=== PATIENT | female | born 1995 | race African-American/Black ===

== ENCOUNTER 2021-04-21 06:06 | Inpatient (IN) ==
[2021-04-21] MEDS ORDERED: CITRIC ACID/SODIUM CITRATE 30 ML UDCUP PO ONE (07:31)
[2021-04-21] MEDS ORDERED: ceFAZolin 2,000 MG/50 ML DUPLEX IV ONE (07:31)
[2021-04-21] MEDS ORDERED: FAMOTIDINE 20 MG/2 ML VIAL IV ONE (07:31)
[2021-04-21] MEDS ORDERED: LACTATED RINGERS 1,000 ML IV SCH (08:00)
[2021-04-21 08:13] LABS: Basophils % 0.3 % (0.0-0.8); Eosinophils % 0.5 % (0.00-10.9); Hematocrit 26.4 VOL% (35.7-47.0); Hemoglobin 7.8 GM/DL (12.0-16.0); Immature Granulocytes % 1.5 %; Immature Granulocytes Absolute 0.09 #; Lymphocytes # 1.6 10*3/uL (1.4-4.0); Lymphocytes % 25.8 % (21.3-54.2); Mean Corpuscular HGB Conc 29.5 GM/DL (32-36); Mean Corpuscular Volume 73.3 FL (87-102); Mean Platelet Volume 9.8 FL (9.6-12.0); Monocytes % 6.2 % (1.7-12.7); NRBC # 0.14 10*3/uL; Neutrophils % 65.7 % (38.7-73.9); Platelet Count 257 T/CUMM (130-400); Red Cell Distribution Width 17.4 % (9.3-17.3); White Blood Count 6.1 T/CUMM (4-12)
[2021-04-21] MEDS ORDERED: TRANEXAMIC ACID 1,000 MG/10 ML VIAL ONE (08:13)
[2021-04-21] MEDS ORDERED: miSOPROStoL 200 MCG TABLET ONE (08:13)
[2021-04-21] MEDS ORDERED: CARBOPROST TROMETHAMINE 250 MCG/ML AMP IM ONE (08:14)
[2021-04-21] MEDS ORDERED: OXYTOCIN/LR 20 UNIT/1,000 ML BAG IV ONE ×2 (08:14→10:17)
[2021-04-21] MEDS ORDERED: METHYLERGONOVINE 0.2 MG/1 ML AMP ONE (08:14)
[2021-04-21] MEDS ORDERED: SODIUM CHLORIDE 0.9% 0 ML IV ONE (08:14)
[2021-04-21 08:20] LABS: Albumin 1.9 G/DL (3.4-5.0); Bilirubin,Total 0.4 MG/DL (0.20-1.00); Calcium 8.4 MG/DL (8.5-10.1); Osmolality,Calculated 278.1 MOS/KG (273-304); Total Protein 6.1 G/DL (6.4-8.2)
[2021-04-21] MEDS ORDERED: PHENYLEPHRINE 1 MG/10 ML SYRINGE IV ONE (08:56)
[2021-04-21] MEDS ORDERED: BUPIVACAINE SPINAL 0.75% 2 ML AMP SPINAL ONE (08:56)
[2021-04-21] MEDS ORDERED: ONDANSETRON 4 MG/2 ML VIAL ONE (08:56)
[2021-04-21] MEDS ORDERED: SODIUM CHLORIDE 0.9% 1,000 ML IV PRN (09:30)
[2021-04-21] MEDS ORDERED: propofoL 200 MG/20 ML VIAL IV ONE (09:55)
[2021-04-21] MEDS ORDERED: KETOROLAC 30 MG/1 ML VIAL ONE ×2 (10:01)
[2021-04-21 10:02] LABS: Bilirubin,Urine Negative (Negative); Blood, Urine Negative (Negative); Glucose,Urine (UA) Negative (Negative); Ketones,Urine Negative (Negative); Nitrite,Urine Negative (Negative); Protein,Urine Negative; Squamous Epithelial Cell,Urine Occasional /HPF (0-10); Urine Appearance CLEAR (Clear); Urine Color Straw (Yellow); Urine Specific Gravity 1.002 (1.001-1.035); Urine Urobilinogen < 2.0 EU/DL (<2.0)
[2021-04-21 10:09] LABS: Cord Arterial Blood HCO3 27.1 MMOL/L
[2021-04-21 10:09] LABS: Cord Arterial Blood HCO3 24.4 MMOL/L
[2021-04-21 10:12] LABS: Cord Venous Blood HCO3 24.9 MMOL/L; Cord Venous Blood PCO2 47.4 MMHG; Cord Venous Blood PO2 20.7
[2021-04-21 10:14] LABS: Cord Venous Blood HCO3 24.2 MMOL/L; Cord Venous Blood PCO2 36.8 MMHG; Cord Venous Blood PO2 31.1 MMHG
[2021-04-21] MEDS ORDERED: BISACODYL 10 MG SUPP RECTAL PRN (10:17)
[2021-04-21] MEDS ORDERED: ONDANSETRON 4 MG/2 ML VIAL IV PRN (10:17)
[2021-04-21] MEDS ORDERED: DIPH/TET/ACEL PERT BOOSTER VACCINE 0.5 ML VIAL IM ONE (10:17)
[2021-04-21] MEDS ORDERED: IBUPROFEN 800 MG TABLET PO PRN (10:17)
[2021-04-21] MEDS ORDERED: MEASLES/MUMPS/RUBELLA VACCINE 0.5 ML VIAL SUBCUT ONE (10:17)
[2021-04-21] MEDS ORDERED: oxyCODONE/ACETAMINOPHEN 5-325 MG TABLET PO PRN (10:17)
[2021-04-21] MEDS ORDERED: RHO(D) IMMUNE GLOBULIN 300 MCG SYRINGE IM ONE (10:17)
[2021-04-21] MEDS ORDERED: WITCH HAZEL PADS 100/JAR TOP PRN (10:17)
[2021-04-21] MEDS ORDERED: HYDROCORTISONE 2.5% RECTAL CREAM 30 GM TUBE TOP PRN (10:17)
[2021-04-21] MEDS ORDERED: ACETAMINOPHEN 325 MG TABLET PO PRN (10:17)
[2021-04-21] MEDS ORDERED: LANOLIN 50% CREAM 0.3 OZ TUBE TOP PRN (10:17)
[2021-04-21] MEDS ORDERED: BENZOCAINE 20%/MENTHOL 0.5% SPRAY 56 GM CAN TOP PRN (10:17)
[2021-04-21] MEDS ORDERED: OXYTOCIN/LR 20 UNIT/1,000 ML BAG IV SCH (10:30)
[2021-04-21] MEDS ORDERED: HYDROmorphone 2 MG/1 ML VIAL IV PRN (11:32)
[2021-04-21] MEDS ORDERED: diphenhydrAMINE 50 MG/1 ML VIAL IV PRN (11:32)
[2021-04-21] MEDS ORDERED: amLODIPine 10 MG TABLET PO SCH (12:27)
[2021-04-21] MEDS: ACETAMINOPHEN 500 MG TABLET PO SCH ×2 (14:14→21:47)
[2021-04-21] MEDS: KETOROLAC 30 MG/1 ML VIAL IV SCH ×2 (16:16→21:54)
[2021-04-21] MEDS ORDERED: LABETALOL 100 MG/20 ML VIAL IV ONE (17:00)
[2021-04-21 17:56] LABS: Hematocrit 29.9 VOL% (35.7-47.0); Hemoglobin 8.9 GM/DL (12.0-16.0)
[2021-04-21] MEDS: DOCUSATE SODIUM 100 MG CAPSULE PO SCH (21:47)
[2021-04-22] MEDS: KETOROLAC 30 MG/1 ML VIAL IV SCH (04:00)
[2021-04-22] MEDS: ACETAMINOPHEN 500 MG TABLET PO SCH (04:00)
[2021-04-22 05:38] LABS: Basophils % 0.4 % (0.0-0.8); Eosinophils % 0.4 % (0.00-10.9); Hematocrit 27.7 VOL% (35.7-47.0); Hemoglobin 8.6 GM/DL (12.0-16.0); Immature Granulocytes % 0.9 %; Immature Granulocytes Absolute 0.09 #; Lymphocytes # 1.7 10*3/uL (1.4-4.0); Lymphocytes % 16.5 % (21.3-54.2); Mean Corpuscular Volume 75.7 FL (87-102); Mean Platelet Volume 9.8 FL (9.6-12.0); Monocytes % 6.1 % (1.7-12.7); NRBC # 0.09 10*3/uL; Neutrophils % 75.7 % (38.7-73.9); Platelet Count 238 T/CUMM (130-400); Red Blood Count 3.66 MC/CUMM (3.8-5.5); Red Cell Distribution Width 17.9 % (9.3-17.3); White Blood Count 10.1 T/CUMM (4-12)
[2021-04-22] MEDS ORDERED: POTASSIUM CHLORIDE INJ 20 MEQ in LACTATED RINGERS 1,000 ML IV SCH (09:00)
[2021-04-22] MEDS: IRON (CARBONYL)/VIT C/B12/FA TABLET PO SCH (09:03)
[2021-04-22] MEDS: oxyCODONE/ACETAMINOPHEN 5-325 MG TABLET PO PRN ×3 (09:03→21:55)
[2021-04-22] MEDS: DOCUSATE SODIUM 100 MG CAPSULE PO SCH ×2 (09:03→21:54)
[2021-04-22] MEDS: MAGNESIUM HYDROXIDE SUSP 30 ML UDCUP PO PRN ×2 (15:32→21:54)
[2021-04-22] MEDS: SIMETHICONE CHEW 80 MG TABLET PO PRN ×2 (15:32→21:55)
[2021-04-23] MEDS: oxyCODONE/ACETAMINOPHEN 5-325 MG TABLET PO PRN (04:31)
[2021-04-23 07:25] VITALS: BP 136/87
[2021-04-23] MEDS: IRON (CARBONYL)/VIT C/B12/FA TABLET PO SCH (09:40)
[2021-04-23] MEDS: MAGNESIUM HYDROXIDE SUSP 30 ML UDCUP PO PRN (09:40)
[2021-04-23] MEDS: SIMETHICONE CHEW 80 MG TABLET PO PRN (09:40)
[2021-04-23] MEDS: DOCUSATE SODIUM 100 MG CAPSULE PO SCH (09:40)
== END 2021-04-23 11:51 | disposition home or self-care (01) | DRG 788 ==
LOC: N.LD 06:06 → N.OB 14:27
PROVIDERS: ADMIT Specialist; ATTEND Specialist
PROC: LDCSECT (ICD-10-PCS; 2021-04-21 09:00)